=== PATIENT | male | born 1955 | race Hispanic/Latino ===

== ENCOUNTER 2024-12-13 16:22 | Emergency (ER) | payer OTHER ==
[2024-12-13 16:45] VITALS: PULSE 80; RESP 17; TEMP 98.3
[2024-12-13] MEDS: KETOROLAC TROMETHAMINE 60 MG/2 ML VIAL IM STA (19:20)
[2024-12-13] MEDS ORDERED: ULTRAM 50MG50 MG PO (19:33)
[2024-12-13 19:35] VITALS: BP 149/86; PULSE 83; RESP 15; TEMP 98.2; O2SAT 98
== END 2024-12-13 19:47 | disposition home or self-care (01) ==
LOC: ER 17:01
DX: S62.317A Displaced fracture of base of fifth metacarpal bone, left hand, initial encounter for closed fracture (principal); W01.0XXA Fall on same level from slipping, tripping and stumbling without subsequent striking against object, initial encounter; Y93.01 Activity, walking, marching and hiking; Y92.89 Other specified places as the place of occurrence of the external cause; I10 Essential (primary) hypertension; E11.9 Type 2 diabetes mellitus without complications; Z85.72 Personal history of non-Hodgkin lymphomas; Z85.46 Personal history of malignant neoplasm of prostate
CPT/HCPCS: 29130; 36415; 73110; 73130; 82948; 99283; J1885